=== PATIENT | female | born 2000 | race African-American/Black ===

== ENCOUNTER 2019-09-21 10:28 | Observation (INO) | payer MEDICAID, OTHER ==
[~2019-09-21] VITALS: Ht 162.6 cm; Wt 63.5 kg
[2019-09-21 10:37] VITALS: BP 121/64
[2019-09-21 12:20] LABS: Urine Bacteria MOD /hpf (None Seen); Urine Blood 2+ /uL (Negative); Urine Mucus FEW (None Seen); Urine Specific Gravity 1.023 (1.001-1.035); Urine WBC 5 /hpf (0 - 5)
[2019-09-21 12:31] LABS: Alcohol, Urine < 3.0 mg/dL (0-10); Amphetamine Screen, Urine NEGATIVE (NEGATIVE); Barbiturate Scree,Urine NEGATIVE (NEGATIVE); Benzodiazephine Screen, Urine NEGATIVE (NEGATIVE); Cannabinoid Screen, Urine NEGATIVE (NEGATIVE); Cocaine Screen, Urine NEGATIVE (NEGATIVE); Opiate Scree,Urine NEGATIVE (NEGATIVE); Phencyclidine Screen, Urine NEGATIVE (NEGATIVE)
[2019-09-21] MEDS ORDERED: BETAMETHASONE ACET (6MG/ML) 5ML VIAL IM ONE (13:45)
[2019-09-22] MEDS ORDERED: PREN-96 PO (15:03)
[2019-09-22] MEDS ORDERED: FERR-7 PO (15:05)
[2019-09-22] MEDS ORDERED: FERR27TA2 PO (15:05)
== END 2019-09-21 14:18 | disposition home or self-care (01) | DRG 566 ==
LOC: ER 10:28 → LDRP 10:55
PROVIDERS: ADMIT Specialist; ATTEND Specialist
DX: O26.852 Spotting complicating pregnancy, second trimester (principal); R10.9 Unspecified abdominal pain; Z3A.24 24 weeks gestation of pregnancy
CPT/HCPCS: 59025; 76805; 80307; 81001; 81002; 96372; 99284; G0378; J0702

== ENCOUNTER 2019-09-22 14:00 | Observation (INO) | payer MEDICAID ==
[2019-09-22] MEDS ORDERED: PREN-96 PO (15:03)
[2019-09-22] MEDS ORDERED: FERR-7 PO (15:05)
[2019-09-22] MEDS ORDERED: FERR27TA2 PO (15:05)
[2019-09-22] MEDS ORDERED: BETAMETHASONE ACET (6MG/ML) 5ML VIAL IM SCH (22:00)
== END 2019-09-22 15:26 | disposition home or self-care (01) | DRG 563 ==
LOC: LDRP 14:00
PROVIDERS: ADMIT Specialist; ATTEND Specialist
DX: O60.02 Preterm labor without delivery, second trimester (principal); Z3A.24 24 weeks gestation of pregnancy
CPT/HCPCS: 59025; 81002; 96372; G0378

== ENCOUNTER 2019-10-12 15:13 | Observation (INO) | payer MEDICAID ==
[~2019-10-12 15:13] MED LIST: FERR-7 PO; PREN-96 PO
== END 2019-10-12 16:20 | disposition home or self-care (01) ==
LOC: TELE 15:13 → LDRP 15:14
PROVIDERS: ADMIT Specialist; ATTEND Specialist
DX: O26.892 Other specified pregnancy related conditions, second trimester (principal); Z3A.27 27 weeks gestation of pregnancy
CPT/HCPCS: 59025; 81002; G0378

== ENCOUNTER 2019-11-03 19:04 | Observation (INO) | payer MEDICAID ==
[~2019-11-03] VITALS: Ht 162.6 cm; Wt 63.5 kg
== END 2019-11-03 20:19 | disposition home or self-care (01) ==
LOC: LDRP 19:04
PROVIDERS: ADMIT Obstetrics & Gynecology; ATTEND Obstetrics & Gynecology
DX: O42.913 Preterm premature rupture of membranes, unspecified as to length of time between rupture and onset of labor, third trimester (principal); Z3A.30 30 weeks gestation of pregnancy
CPT/HCPCS: 59025; 81002; 84112; G0378; Q0114

== ENCOUNTER 2019-12-30 12:50 | Observation (INO) | payer MEDICAID ==
[2019-12-30 14:12] LABS: Urine Bacteria FEW /hpf (None Seen); Urine Blood Negative /uL (Negative); Urine Specific Gravity 1.007 (1.001-1.035); Urine WBC 32 /hpf (0 - 5)
[2019-12-30 14:28] LABS: Alcohol, Urine < 3.0 mg/dL (0-10); Amphetamine Screen, Urine NEGATIVE (NEGATIVE); Barbiturate Scree,Urine NEGATIVE (NEGATIVE); Benzodiazephine Screen, Urine NEGATIVE (NEGATIVE); Cannabinoid Screen, Urine NEGATIVE (NEGATIVE); Cocaine Screen, Urine NEGATIVE (NEGATIVE); Opiate Scree,Urine NEGATIVE (NEGATIVE); Phencyclidine Screen, Urine NEGATIVE (NEGATIVE)
[2019-12-30 16:09] LABS: Albumin 2.6 g/dL (3.4-5.0); Calcium 8.8 mg/dL (8.5-10.1); Potassium 3.8 mmol/L (3.5-5.1)
[2019-12-30 16:13] LABS: BUN/Creatinine Ratio 9.4; Bilirubin, Total 0.2 mg/dL (0.2-1.0); Total Protein 7.3 g/dL (6.4-8.2)
[2019-12-30 16:16] LABS: Basophils # (auto) 0 10 ^3/uL (0-0.2); Basophils % (auto) 0.1 % (0.0-2.0); Eosinophils # (auto) 0.1 10 ^3/uL (0-0.8); Lymphocytes # (auto) 1.5 10 ^3/uL (0.4-5.4); Mean Corpuscular Hemoglobin 26.3 pg (28.0-32.0); Monocytes # (auto) 0.6 10 ^3/uL (0-1.3); Neutrophils # (auto) 4.4 10 ^3/uL (1.6-8.6); White Blood Cell 6.6 10^3/uL (4.4-10.8)
[2019-12-30 16:20] LABS: Eosinophils % (auto) 1.6 % (0.0-7.0); Hematocrit 32.8 % (36.0-46.0); Hemoglobin 10.8 g/dL (12.2-16.2); Lymphocytes % (auto) 23.2 % (10.0-50.0); Mean Corpuscular Volume 79.6 fL (80.0-100.0); Monocytes % (auto) 9.1 % (0.0-12.0); Platelet Count (auto) 206 10^3/uL (140-450); Red Blood Cells 4.12 10^6/uL (4.0-5.20); Red Cell Distribution Width 14.7 % (11.8-14.3)
[2019-12-30 16:39] LABS: INR 0.92 (0.9-1.15); Partial Thromboplastin Time 25.2 sec (23.0-31.2)
[2019-12-31 05:07] LABS: RPR Non Reactive (Non Reactive); Rubella Antibodies, IgG 1.76 index (Immune >0.99)
== END 2019-12-30 16:32 | disposition home or self-care (01) ==
LOC: LDRP 12:50
PROVIDERS: ADMIT Obstetrics & Gynecology; ATTEND Obstetrics & Gynecology
DX: O62.9 Abnormality of forces of labor, unspecified (principal); Z79.899 Other long term (current) drug therapy; Z3A.38 38 weeks gestation of pregnancy
CPT/HCPCS: 36415; 59025; 76805; 76818; 80053; 80307; 81001; 81002; 84112; 85025; 85384; 85610; 85730; 86592; 86703; 86762; 86850; 86900; 86901; 87340; G0378; Q0114

== ENCOUNTER 2020-01-15 06:55 | Inpatient (IN) | payer MEDICAID ==
[~2020-01-15] VITALS: Ht 165.1 cm; Wt 68.0 kg
[2020-01-15] MEDS ORDERED: DERMOPLAST 60ML BOTTLE TOP PRN (07:15)
[2020-01-15] MEDS ORDERED: WITCH HAZEL-GLYCERIN PAD TOP PRN (07:15)
[2020-01-15] MEDS ORDERED: LACTATED RINGER'S 1,000 ML IV SCH (07:15)
[2020-01-15] MEDS ORDERED: LACT. RINGERS/OXYTOCIN 20UNITS 1,000 ML IV SCH ×3 (07:15→10:45)
[2020-01-15] MEDS ORDERED: LIDOCAINE 2%HCL (LOCAL ANESTH.) INJ 20ML MDV IJ PRN (07:15)
[2020-01-15] MEDS ORDERED: PHISODERM TOP SOLN 240ML BTL TOP PRN (07:15)
[2020-01-15] MEDS ORDERED: PENICILLIN G POT 5MIL/D5 50ML 50 ML IV ONE (07:30)
[2020-01-15] MEDS ORDERED: METHYLERGONOVINE MALEATE 0.2 MG/ML AMP IM ONE (08:19)
[2020-01-15] MEDS ORDERED: miSOPROStol 100 mcg TAB ONE (08:22)
[2020-01-15 08:59] LABS: Basophils # (auto) 0 10 ^3/uL (0-0.2); Eosinophils # (auto) 0.1 10 ^3/uL (0-0.8); Lymphocytes # (auto) 2.4 10 ^3/uL (0.4-5.4); Monocytes # (auto) 0.5 10 ^3/uL (0-1.3); Red Cell Distribution Width 15.5 % (11.8-14.3)
[2020-01-15 09:01] LABS: Basophils % (auto) 0.1 % (0.0-2.0); Eosinophils % (auto) 0.9 % (0.0-7.0); Hematocrit 32.6 % (36.0-46.0); Hemoglobin 10.4 g/dL (12.2-16.2); Lymphocytes % (auto) 23.7 % (10.0-50.0); Mean Corpuscular Hemoglobin 25.2 pg (28.0-32.0); Mean Corpuscular Hgb Conc. 31.9 g/dL (32.0-36.0); Monocytes % (auto) 5.3 % (0.0-12.0); Platelet Count (auto) 184 10^3/uL (140-450); Red Blood Cells 4.13 10^6/uL (4.0-5.20)
[2020-01-15 09:15] LABS: Urine Bacteria FEW /hpf (None Seen); Urine Blood 2+ /uL (Negative); Urine Mucus FEW (None Seen); Urine Specific Gravity 1.013 (1.001-1.035); Urine WBC 18 /hpf (0 - 5)
[2020-01-15 09:19] LABS: INR 0.94 (0.9-1.15); Partial Thromboplastin Time 27.6 sec (23.0-31.2)
[2020-01-15 09:21] LABS: Alcohol, Urine < 3.0 mg/dL (0-10); Amphetamine Screen, Urine NEGATIVE (NEGATIVE); Barbiturate Scree,Urine NEGATIVE (NEGATIVE); Benzodiazephine Screen, Urine NEGATIVE (NEGATIVE); Cannabinoid Screen, Urine NEGATIVE (NEGATIVE); Cocaine Screen, Urine NEGATIVE (NEGATIVE); Opiate Scree,Urine NEGATIVE (NEGATIVE); Phencyclidine Screen, Urine NEGATIVE (NEGATIVE)
[2020-01-15 09:22] LABS: Albumin 2.6 g/dL (3.4-5.0); BUN/Creatinine Ratio 6.4; Bilirubin, Total 0.3 mg/dL (0.2-1.0); Calcium 8.3 mg/dL (8.5-10.1)
[2020-01-15 09:24] LABS: Potassium 2.9 mmol/L (3.5-5.1)
[2020-01-15] MEDS ORDERED: POTASSIUM CHL 20 Meq TABLET PO ONE (09:45)
--- NOTE | 2020-01-15 10:45 | NUR ---
RECEIVED REPORT, ASSUMED CARE.
--- NOTE | 2020-01-15 11:00 | NUR ---
INITIATED ASSESSMENT, PT OOB, AMBULATED INDEPENDENTLY TO BATHROOM, RN SIDE, VOID 600 CC'S CLEAR YELLOW URINE, DENIES PAIN. ATIF CARE COMPLETED INDEPENDENTLY BY PT.
[2020-01-15] MEDS: IBUPROFEN 600 MG TAB PO PRN ×2 (11:22→22:15)
--- NOTE | 2020-01-15 11:27 | NUR ---
FOR RECOVERY VITAL SIGNS PLEASE SEE [facility]. THANK YOU
[2020-01-15] MEDS ORDERED: PENICILLIN G POTASSIUM 2,500,000 UNITS in D5W 5% 50 ML IV SCH (11:30)
[2020-01-15 15:10] VITALS: BP 99/59
[2020-01-15 18:57] VITALS: BP 103/61
[2020-01-15 23:00] VITALS: BP 104/63
[2020-01-16 02:46] VITALS: BP 100/63
[2020-01-16 05:12] LABS: RPR Non Reactive (Non Reactive)
[2020-01-16 07:10] VITALS: BP 109/55
[2020-01-16 09:05] VITALS: BP 109/55
[2020-01-16 10:46] VITALS: BP 103/60
--- NOTE | 2020-01-16 11:19 | NUR ---
Geovanna from social media content manager at bedside. Per SS consult pt cleared on their end.
--- NOTE | 2020-01-16 11:54 | NUR ---
Assessment Social Service consult for no PNC. Patient stated she recently move from [place] to [place] and was unable to see a doctor in [place] who would see her and for that reason she did not continue to take her care. Pt resides with family and will have assistance with baby upon discharge. Pt has all supplies as well as car seat for baby and will be bottle and . Pt has medical insurance for herself/baby and will be following up with provider appt post discharge. Pt has transportation home upon discharge. THERESA Fofana was at bedside.
--- NOTE | 2020-01-16 12:00 | NUR ---
Discharge: Discharge instructions given as ordered. Pt encouraged to follow up with [facility]ONDENT as instructed. All questions and concerns addressed. Patient verbalized understanding. Medication reconciliation completed and copy given to patient. Patient encouraged to prepare to depart unit.
--- NOTE | 2020-01-16 12:24 | NUR ---
Discharge: Patient ambulates with steady gait to private vehicle, per request, with all personal belongings, accompanied by staff and family member. No distress noted at time of departure, no adverse changes in status since initial assessment.
== END 2020-01-16 12:24 | disposition home or self-care (01) | DRG 560 ==
LOC: LDRP 06:55 → OBSVTOIN 06:56
PROVIDERS: ADMIT Specialist; ATTEND Specialist
PROC: 10E0XZZ Delivery of Products of Conception, External Approach (ICD-10-PCS; principal; 2020-01-15)
DX: O77.0 Labor and delivery complicated by meconium in amniotic fluid (principal); Z3A.37 37 weeks gestation of pregnancy; Z37.0 Single live birth; O69.81X0 Labor and delivery complicated by cord around neck, without compression, not applicable or unspecified; Z20.828 Contact with and (suspected) exposure to other viral communicable diseases
CPT/HCPCS: 36415; 59025; 59409; 80053; 80307; 81001; 81002; 85025; 85610; 85730; 86592; 86850; 86900; 86901; 87426; 96360; 96361; 96365; 96366; G0378; J2540; J2590; J7060

== ENCOUNTER 2020-08-14 18:06 | Observation (INO) | payer MEDICAID ==
[~2020-08-14] VITALS: Ht 162.6 cm; Wt 68.0 kg
[2020-08-14 20:27] LABS: Alcohol, Urine < 3.0 mg/dL (0-10); Amphetamine Screen, Urine NEGATIVE (NEGATIVE); Barbiturate Scree,Urine NEGATIVE (NEGATIVE); Benzodiazephine Screen, Urine NEGATIVE (NEGATIVE); Cannabinoid Screen, Urine NEGATIVE (NEGATIVE); Cocaine Screen, Urine NEGATIVE (NEGATIVE); Opiate Scree,Urine NEGATIVE (NEGATIVE); Phencyclidine Screen, Urine NEGATIVE (NEGATIVE)
== END 2020-08-14 22:20 | disposition home or self-care (01) ==
LOC: LDRP 18:06
PROVIDERS: ADMIT Obstetrics & Gynecology; ATTEND Obstetrics & Gynecology
DX: O42.912 Preterm premature rupture of membranes, unspecified as to length of time between rupture and onset of labor, second trimester (principal); Z3A.24 24 weeks gestation of pregnancy; Z79.899 Other long term (current) drug therapy
CPT/HCPCS: 59025; 76805; 80307; 81002; 84112; 87491; 87591; G0378; Q0114

== ENCOUNTER 2020-11-20 18:11 | Inpatient (IN) | payer MEDICAID ==
[~2020-11-20] VITALS: Ht 165.1 cm; Wt 63.5 kg
[2020-11-20] MEDS ORDERED: BUTORPHANOL TARTRATE 2 MG/1 ML VIAL IV PRN ×2 (20:15)
[2020-11-20] MEDS ORDERED: PROMETHAZINE HCL 25 MG/ML 1ML IV PRN (20:15)
[2020-11-20] MEDS ORDERED: PHISODERM TOP SOLN 240ML BTL TOP PRN (20:15)
[2020-11-20] MEDS ORDERED: DERMOPLAST 60ML BOTTLE TOP PRN (20:15)
[2020-11-20] MEDS ORDERED: LIDOCAINE 2%HCL (LOCAL ANESTH.) INJ 20ML MDV IJ PRN (20:15)
[2020-11-20] MEDS ORDERED: LACTATED RINGER'S 1,000 ML IV SCH (20:15)
[2020-11-20 21:35] LABS: Basophils # (auto) 0 10 ^3/uL (0-0.2); Eosinophils # (auto) 0.4 10 ^3/uL (0-0.8); Monocytes # (auto) 0.5 10 ^3/uL (0-1.3); Neutrophils # (auto) 4.2 10 ^3/uL (1.6-8.6); Red Blood Cells 4.51 10^6/uL (4.0-5.20)
[2020-11-20 21:37] LABS: Basophils % (auto) 0.3 % (0.0-2.0); Eosinophils % (auto) 5.6 % (0.0-7.0); Hematocrit 35.9 % (36.0-46.0); Hemoglobin 11.9 g/dL (12.2-16.2); Lymphocytes % (auto) 27.9 % (10.0-50.0); Mean Corpuscular Hemoglobin 26.5 pg (28.0-32.0); Mean Corpuscular Hgb Conc. 33.3 g/dL (32.0-36.0); Mean Corpuscular Volume 79.6 fL (80.0-100.0); Monocytes % (auto) 7.3 % (0.0-12.0); Neutrophils % (auto) 58.9 % (37.0-80.0); Nucleated Red Blood Cells % 0.1 %; Red Cell Distribution Width 15.4 % (11.8-14.3); White Blood Cell 7.1 10^3/uL (4.4-10.8)
[2020-11-20 21:51] LABS: INR 0.97 (0.9-1.15)
[2020-11-20 22:04] LABS: Albumin 2.6 g/dL (3.4-5.0); Potassium 3.7 mmol/L (3.5-5.1)
[2020-11-20 22:05] LABS: BUN/Creatinine Ratio 11.9; Uric Acid 3.7 mg/dL (2.6-6.0)
[2020-11-20 22:09] LABS: Bilirubin, Total 0.3 mg/dL (0.2-1.0); Total Protein 7.5 g/dL (6.4-8.2)
[2020-11-20 22:20] LABS: Urine Amorphous Crystal FEW /hpf (None Seen); Urine Bacteria NONE SEEN /hpf (None Seen); Urine Blood Negative /uL (Negative); Urine Mucus FEW (None Seen); Urine Specific Gravity 1.022 (1.001-1.035); Urine WBC 18 /hpf (0 - 5)
[2020-11-20] MEDS ORDERED: fentaNYL CITRATE 100 MCG/2 ML VL IV ONE (22:30)
[2020-11-20] MEDS ORDERED: LIDOCAINE HCL 2 %PF INJ 10ML AMP IJ ONE (22:30)
[2020-11-20] MEDS ORDERED: ePHEDrine SULFATE 50 MG/ML AMP IV ONE (22:30)
[2020-11-20] MEDS ORDERED: NALOXONE HCL 0.4 MG/ML VIAL IV ONE (22:30)
[2020-11-20] MEDS ORDERED: ROPIVACAINE HCL 200 ML EPI SCH (22:30)
[2020-11-20] MEDS ORDERED: LACTATED RINGER'S 500 ML IV ONE (22:30)
[2020-11-20 22:36] LABS: Alcohol, Urine < 3.0 mg/dL (0-10); Amphetamine Screen, Urine NEGATIVE (NEGATIVE); Barbiturate Scree,Urine NEGATIVE (NEGATIVE); Benzodiazephine Screen, Urine NEGATIVE (NEGATIVE); Cannabinoid Screen, Urine NEGATIVE (NEGATIVE); Cocaine Screen, Urine NEGATIVE (NEGATIVE); Opiate Scree,Urine NEGATIVE (NEGATIVE); Phencyclidine Screen, Urine NEGATIVE (NEGATIVE)
[2020-11-20] MEDS: WITCH HAZEL-GLYCERIN PAD TOP PRN (23:07)
[2020-11-21] MEDS ORDERED: LACT. RINGERS/OXYTOCIN 20UNITS 500 ML IV ONE ×2 (00:30→01:00)
[2020-11-21] MEDS ORDERED: PENICILLIN G POT 5MIL/D5 50ML 50 ML IV ONE (00:45)
[2020-11-21] MEDS ORDERED: PENICILLIN G POTASSIUM 2,500,000 UNITS in D5W 5% 50 ML IV SCH (04:45)
[2020-11-21] MEDS ORDERED: IBUPROFEN 600 MG TAB PO PRN (08:45)
[2020-11-21] MEDS ORDERED: ACETAMINOPHEN 325 MG TAB PO PRN (08:45)
[2020-11-21] MEDS: IBUPROFEN 800 MG TAB PO PRN (09:21)
[2020-11-21 10:30] VITALS: BP 123/77
[2020-11-21 15:00] VITALS: BP 110/77
[2020-11-21] MEDS: WITCH HAZEL-GLYCERIN PAD TOP PRN (15:26)
[2020-11-21 19:29] VITALS: BP 115/65
[2020-11-21 23:29] VITALS: BP 109/70
[2020-11-22 03:14] VITALS: BP 113/60
[2020-11-22 07:30] VITALS: BP 95/58
[2020-11-22] MEDS: HYDROcodone-ACET 5/325MG TAB PO PRN ×2 (07:41→22:21)
[2020-11-22 11:00] VITALS: BP 103/58
[2020-11-22] MEDS: IBUPROFEN 800 MG TAB PO PRN (15:07)
[2020-11-22 15:08] VITALS: BP 93/52
[2020-11-22 19:00] VITALS: BP 98/58
[2020-11-22 23:00] VITALS: BP 104/59
[2020-11-23 03:00] VITALS: BP 98/59
[2020-11-23 03:06] LABS: Rubella Antibodies, IgG 1.78 index (Immune >0.99)
[2020-11-23 07:00] VITALS: BP 101/62
[2020-11-23] MEDS ORDERED: IBUP600T27 PO (09:03)
[2020-11-23 11:00] VITALS: BP 110/65
[2020-11-23] MEDS: IBUPROFEN 800 MG TAB PO PRN (14:48)
[2020-11-23 15:00] VITALS: BP 118/58
== END 2020-11-23 16:47 | disposition home or self-care (01) | DRG 560 ==
LOC: LDRP 18:11 → OBSVTOIN 20:00
PROVIDERS: ADMIT Obstetrics & Gynecology; ATTEND Obstetrics & Gynecology
PROC: 10E0XZZ Delivery of Products of Conception, External Approach (ICD-10-PCS; principal; 2020-11-21)
PROC: 3E0R3BZ Introduction of Anesthetic Agent into Spinal Canal, Percutaneous Approach (ICD-10-PCS; 2020-11-21)
PROC: 00HU33Z Insertion of Infusion Device into Spinal Canal, Percutaneous Approach (ICD-10-PCS; 2020-11-21)
DX: O80 Encounter for full-term uncomplicated delivery (principal); Z37.0 Single live birth; Z20.822 Contact with and (suspected) exposure to COVID-19; Z3A.38 38 weeks gestation of pregnancy
CPT/HCPCS: 36415; 59025; 59409; 62282; 76805; 80053; 80307; 81001; 81002; 84550; 85025; 85610; 85730; 86592; 86703; 86762; 86850; 86900; 86901; 87340; 87426; 94760; 94762; 96360; 96361; 96365; 96366; G0378; J2540; J2590; J7060